=== PATIENT | female | born 2000 | race Caucasian/White ===

== ENCOUNTER 2022-09-09 21:40 | Emergency (ER) | payer OTHER, BC ==
[2022-09-09] MEDS ORDERED: Lidocaine 1% w/Epinephrine 1:200K 30 ML VIAL ONE (22:29)
[2022-09-09] MEDS ORDERED: Boostrix 0.5 ML (Tdap) VIAL (>/=7 yrs of age) ONE (23:38)
[2022-09-09] MEDS ORDERED: Acetaminophen/Codeine 30-300mg Tablet ONE (23:38)
== END 2022-09-09 23:04 | disposition home or self-care (01) ==
LOC: CSHERS 21:40
DX: S01.81XA Laceration without foreign body of other part of head, initial encounter (principal); S09.90XA Unspecified injury of head, initial encounter; V89.2XXA Person injured in unspecified motor-vehicle accident, traffic, initial encounter; Z23 Encounter for immunization
CPT/HCPCS: 12013; 70450; 72125; 90471; 90715